=== PATIENT | female | born 1955 | race Caucasian/White ===

== ENCOUNTER 2020-03-29 09:44 | Outpatient (CLI) | payer OTHER | END 2020-03-29 09:56 | disposition home or self-care (01) | LOC: TOM 09:44 | PROVIDERS: ATTEND Internal Medicine Gastroenterology | DX: D12.5 Benign neoplasm of sigmoid colon (principal); K56.600 Partial intestinal obstruction, unspecified as to cause ==

== ENCOUNTER → 2020-05-14 | Outpatient (CLI) | payer OTHER | END | disposition home or self-care (01) | LOC: PPH VACUNA | DX: Z23 Encounter for immunization (principal) ==